=== PATIENT | female | born 1985 ===

== ENCOUNTER 2017-11-26 10:17 | Emergency (ER) | payer OTHER ==
[2017-11-26 10:18] VITALS: BMI 32.5
[2017-11-26 10:47] VITALS: BP 99/67; PULSE 95; RESP 18; TEMP 98; O2SAT 98
--- NOTE | 2017-11-26 10:47 | ED PDOC ---
HPI: General Adult Time Seen by Provider: 11/26/17 10:46 Chief Complaint (Nursing): Wound Check Chief Complaint (Provider): post op wound check History Per: Patient Additional Complaint(s): 32 year old female presents for wound check of incision. Patient is status post on October 31 and presents today with slight bleeding that she noticed as of this morning. Patient denies fever or chills. She has slight pain to affected area but is relieved when she takes Motrin. PMD: none Past Medical History Reviewed: Historical Data, Nursing Documentation, Vital Signs Vital Signs: Last Vital Signs Temp 98 F 11/26/17 10:35 Pulse 95 H 11/26/17 10:35 Resp 18 11/26/17 10:35 BP 99/67 L 11/26/17 10:35 Pulse Ox 98 11/26/17 11:19 - Medical History PMH: No Chronic Diseases, Diabetes - Surgical History Surgical History: - Family History Family History: States: No Known Family Hx - Living Arrangements Living Arrangements: With Family - Social History Current smoker - smoking cessation education provided: No Alcohol: None Drugs: Denies - Home Medications Home Medications: Ambulatory Orders Medication Instructions Recorded Oxycodone HCl/Acetaminophen 1 tab PO Q6 PRN 11/22/17 [Acetaminophen-Oxycodone 325 mg-5 mg] Ibuprofen [Motrin Tab] 800 mg PO Q8 PRN #20 tab 11/26/17 - Allergies Allergies/Adverse Reactions: Allergies Allergy/AdvReac Type Severity Reaction Status Date / Time No Known Allergies Allergy Verified 11/22/17 18:32 Review of Systems ROS Statement: Except As Marked, All Systems Reviewed And Found Negative Constitutional: Negative for: Fever Skin: Positive for: Other (wound check of incision) Physical Exam - Reviewed Nursing Documentation Reviewed: Yes Vital Signs Reviewed: Yes - Physical Exam Appears: Positive for: Well, Non-toxic, No Acute Distress Skin: Negative for: Rash Eye Exam: Positive for: Normal appearance Gastrointestinal/Abdominal: Positive for: Other (well healed incision noted, no bleeding or active drainage, no infection noted, no dehiscence, minimal tenderness to palpation) Neurologic/Psych: Positive for: Alert, Oriented - ECG O2 Sat by Pulse Oximetry: 98 Pulse Ox Interpretation: Normal Medical Decision Making Medical Decision Makin32 year old here for wound check Plan: PO tylenol and motrin Wound is well healed with no active bleeding or drainage, no infection noted. Rx motrin given. Patient was referred to [facility] for follow up. Disposition - Clinical Impression Clinical Impression: Encounter for wound re-check - Patient ED Disposition Is Patient to be Admitted: No Counseled Patient/Family Regarding: Need For Followup - Disposition [facility]errals: [facility] [Outside] Disposition: Routine/Home Disposition Time: 11:03 Condition: STABLE Additional Instructions: Keep area clean and dry. Take prescription meds for pain relief as needed. Follow-up with women[facility] clinic. Prescriptions: Ibuprofen [Motrin Tab] 800 mg PO Q8 PRN #20 tab PRN Reason: Pain, Moderate (4-7) Instructions: ( Delivery) Forms: [employer] (Arabic) Print Language: AZERI
== END 2017-11-26 11:20 | disposition home or self-care (01) ==
LOC: H.ER 10:17
DX: Z48.01 Encounter for change or removal of surgical wound dressing (principal)